=== PATIENT | female | born 1995 | race Caucasian/White ===

== ENCOUNTER → 2019-10-28 14:13 | Outpatient (CLI) | payer OTHER, SELFPAY ==
[2019-10-31 18:45] LABS: Candida species Negative (Negative)
[2019-11-05 11:04] LABS: Trichomoas vaginalis Negative (Negative)
== END ==
PROVIDERS: PCP Radiology Diagnostic Radiology; Visit Provider Obstetrics & Gynecology
DX: N76.0 Acute vaginitis (principal)
CPT/HCPCS: 87480; 87491; 87510; 87591; 87798; 87801

== ENCOUNTER 2020-05-13 09:45 | Outpatient (RCR) | payer OTHER, SELFPAY ==
--- NOTE | 2020-02-19 18:24 | PT.OIE ---
Current Diagnoses Pelvic and perineal pain (02/24/20) Past Medical History (Last Reviewed 10/28/19 @ 14:42 by Bernie Hinkle MD) Chronic pelvic pain in female (Chronic) Past Surgical History (Last Reviewed 10/28/19 @ 14:42 by Bernie Hinkle MD) History of appendectomy (Resolved) History of tonsillectomy and adenoidectomy (Resolved) Visit Care Team Role Provider Type Zackery Brito Attending Provider Non-Staff Primary Care Provider Referring Provider Specialty: Medical Address: [place], [place], [facility] Fax: Email: Physical Therapy Initial Evaluation PT-OP-A Visit Information Start: 02/19/20 12:56 Freq: Status: Active Protocol: Document 02/19/20 12:56 [facility] (Rec: 02/19/20 12:56 [facility] [email or web address]) Out-Patient Physical Therapy Visit Information Visit Information Visit Type Initial Evaluation Visit Start Time 14:30 Visit Stop Time 15:15 Total Visit Minutes 45 Visit Number 1 Evaluation Information Evaluation Date 02/19/20 PT-OP-B Current Condition Start: 02/19/20 12:56 Freq: Status: Active Protocol: Document 02/19/20 14:41 [facility] (Rec: 02/19/20 14:53 [facility] [id number]) Current Condition History of Current Condition Onset Date 2 years History of Current Condition Any time she does major exercise she gets a pulsing feeling and pain, she describes it as bad cramps. Some times she will wake up and it is there. At the time pain started she had develop cysts in her uterus. She had a laporoscopy but they were not able to get to the uterus to see if she has endometriosis. She had Appendix surgery 2013. Currently she is taking IBU when needed and testing different control pills. She has a history of low back pain that she got when she joined the . Back always hurts. Pt is in the [place]. Feels pressure in the pelvis with standing after 15 minutes, sitting will also bring on pressure after about 15 minutes. Treatment Goals Patient/Caregiver Goals Pts goals are to decrease pain in the pelvic floor and anterior pelvis and to be able to continue to exercise without pain PT-OP-F Manual Assessment Start: 02/19/20 12:56 Freq: Status: Active Protocol: Document 02/19/20 18:47 [facility] (Rec: 02/24/20 17:42 [facility] [email or web address]) Manual Assessments Soft Tissue Assessment Soft Tissue Mobility Assessment tightness across the myofascial tissue in the abdominal region in the suprapubic region and right side of the abdominal wall, tightness of the right greater than left iliopsoas, adductor muscle guarding and tightness bilaterally PT-OP-I Pelvic Floor Start: 02/19/20 12:56 Freq: Status: Active Protocol: Document 02/19/20 18:47 [facility] (Rec: 02/24/20 17:42 [facility] [email or web address]) Pelvic Floor Assessment Urine Pelvic Floor Surgery No Urinary Symptoms Falling Out Feeling/Heavy Voiding Frequency 3 times per day Nocturia 0 Pelvic Clock Pelvic Clock 12-3 Guarding Pelvic Clock 3-6 Hypertonic Pelvic Clock 6-9 Hypertonic Pelvic Clock 9-12 Guarding Pelvic Clock Other tenderness to palpation with all sides of the levator ani SEMG (uV) Baseline 4.0 Recruitment Pattern Fair Relaxation Fair Holding Poor/Slow Stability of Hold Poor/Slow SEMG Stability of Rest Fair Contraction Ability Voluntary Contraction Moderate Voluntary Relaxation Absent Manual Muscle Testing Left 4 Manual Muscle Testing Right 4 Manual Muscle Testing Anterior 4 Manual Muscle Testing Posterior 4 PT-OP-T Assessment and Plan Start: 02/19/20 12:56 Freq: Status: Active Protocol: Document 02/19/20 18:47 [facility] (Rec: 02/24/20 17:42 [facility] [email or web address]) Physical Therapy Assessment Rehab Potential Rehabilitation Potential Excellent Evaluation Complexity Number of Personal Factors/Comorbidities 1-2 Number of Body Systems Impaired 1-2 Clinical Presentation at Evaluation Stable Impairments Impairments Activity Tolerance,Functional Activities,Pain,Soft Tissue Mobility,Tone Goals Four Impairment pt lacks a home program for pelvic pain management [employer] Goal (LTG) pt has been instructed in breathing techniques and specific yoga positions to address her pelvic pain symptoms LTG Duration 8 weeks Three Impairment Tightness in the iliopsoas R > L and B adductors Short Term Goal (STG) Nataly is shown a stretching program to improve length of the iliopsoas and adductors STG Duration 5 weeks Two Impairment myofascial tightness across the abdominal and suprapubic fascia Long-Term Goal (LTG) With manual therapy techniques there is a reduction in myofascial tightness across the abdominal wall and suprapubic fascia. LTG Duration 8 weeks One Impairment complaints of pelvic pain that worsens with exercise, standing and sitting Short Term Goal (STG) Nataly is educated on relaxed awareness of her pelvic floor and abdominal wall at rest STG Duration 4 weeks Long-Term Goal (LTG) Nataly reports a overall reduction in pain from current scale of 5/10 to 1-2/10 after exercise and with standing and sitting activities LTG Duration 8 weeks Assessment Summary Assessment Nataly presents to physical therapy today with signs and symptoms of levator ani hypertonicity and pelvic pain symptoms. She has had pain for the past 2 years and it has progressed. She feels that her pain is aggravated with exercise. She reports a pulsing feeling and increase pelvic pressure with exercise . She also notes that after 15 minutes of sitting or standing pelvic pressure increases. Nataly reports she has had a laproscopy to remove cysts. She also has a history of appendictomy. With examination today Vianca presents with myofascial restrictions throughout the abdominal fascia, she is tight and guarded in the adductors and quadriceps. With pelvic floor examination Nataly presents with tightness and increased tone throughout the levator ani. She has difficulty relaxing after a contraction. Endurance of a pelvic floor contraction is limited. Nataly is a good candidate for PT to address her pelvic pain. Treatment will include MFR over the abdominal wall and suprapubic fascia, iliopsoas and adductor release, and manual therapy techniques for the levator ani . Breathing techniques will be used to help reduce tone of the pelvic floor as well as relaxed awareness of the pelvic floor on EMG biofeedback. Physical Therapy Plan Frequency and Duration Frequency of Treatment 1x/Week Duration of Treatment 8 Plan of Care Start Date 02/19/20 Plan of Care End Date 04/22/20 Therapeutic Interventions Therapeutic Interventions Home Exercise Program,Manual Therapy,Neuromuscular Re- education,Patient/Caregiver Education,Self-Care/Home Management,Soft Tissue Mobilization,Therapeutic Exercises Modalities Biofeedback Next Visit Focus/Plan Next Note Type Treatment Note Next Visit Plan MFR over the abdominal wall, visceral release to the bladder, MFR to the adductors and iliopsoas musculature
--- NOTE | 2020-02-19 18:28 | PT.OPPOC ---
Physical, Occupational & Speech Therapy At [facility] Current Diagnoses Pelvic and perineal pain (02/24/20) Visit Care Team Role Provider Type Zackery Brito Attending Provider Non-Staff Primary Care Provider Referring Provider Specialty: Medical Address: [place], [address] Fax: Email: Plan Of Care PT-OP-T Assessment and Plan Start: 02/19/20 12:56 Freq: Status: Active Protocol: Document 02/19/20 18:47 [facility] (Rec: 02/24/20 17:42 [facility] [email or web address]) Physical Therapy Assessment Rehab Potential Rehabilitation Potential Excellent Evaluation Complexity Number of Personal Factors/Comorbidities 1-2 Number of Body Systems Impaired 1-2 Clinical Presentation at Evaluation Stable Impairments Impairments Activity Tolerance,Functional Activities,Pain,Soft Tissue Mobility,Tone Goals Four Impairment pt lacks a home program for pelvic pain management Care Home Goal (LTG) pt has been instructed in breathing techniques and specific yoga positions to address her pelvic pain symptoms LTG Duration 8 weeks Three Impairment Tightness in the iliopsoas R > L and B adductors Short Term Goal (STG) Nataly is shown a stretching program to improve length of the iliopsoas and adductors STG Duration 5 weeks Two Impairment myofascial tightness across the abdominal and suprapubic fascia Care Home Goal (LTG) With manual therapy techniques there is a reduction in myofascial tightness across the abdominal wall and suprapubic fascia. LTG Duration 8 weeks One Impairment complaints of pelvic pain that worsens with exercise, standing and sitting Short Term Goal (STG) Nataly is educated on relaxed awareness of her pelvic floor and abdominal wall at rest STG Duration 4 weeks [employer] Goal (LTG) Nataly reports a overall reduction in pain from current scale of 5/10 to 1-2/10 after exercise and with standing and sitting activities LTG Duration 8 weeks Assessment Summary Assessment Nataly presents to physical therapy today with signs and symptoms of levator ani hypertonicity and pelvic pain symptoms. She has had pain for the past 2 years and it has progressed. She feels that her pain is aggravated with exercise. She reports a pulsing feeling and increase pelvic pressure with exercise . She also notes that after 15 minutes of sitting or standing pelvic pressure increases. Nataly reports she has had a laproscopy to remove cysts. She also has a history of appendictomy. With examination today Vianca presents with myofascial restrictions throughout the abdominal fascia, she is tight and guarded in the adductors and quadriceps. With pelvic floor examination Nataly presents with tightness and increased tone throughout the levator ani. She has difficulty relaxing after a contraction. Endurance of a pelvic floor contraction is limited. Nataly is a good candidate for PT to address her pelvic pain. Treatment will include MFR over the abdominal wall and suprapubic fascia, iliopsoas and adductor release, and manual therapy techniques for the levator ani . Breathing techniques will be used to help reduce tone of the pelvic floor as well as relaxed awareness of the pelvic floor on EMG biofeedback. Physical Therapy Plan Frequency and Duration Frequency of Treatment 1x/Week Duration of Treatment 8 Plan of Care Start Date 02/19/20 Plan of Care End Date 04/22/20 Therapeutic Interventions Therapeutic Interventions Home Exercise Program,Manual Therapy,Neuromuscular Re- education,Patient/Caregiver Education,Self-Care/Home Management,Soft Tissue Mobilization,Therapeutic Exercises Modalities Biofeedback Next Visit Focus/Plan Next Note Type Treatment Note Next Visit Plan MFR over the abdominal wall, visceral release to the bladder, MFR to the adductors and iliopsoas musculature Plan of Care Dates Plan of Care Start Date 02/19/20 Plan of Care End Date 04/22/20 Electronically Signed by: Laurence Carranza, PT 02/24/20 [id number] Please Sign and Return: I have reviewed this Plan of Care and certify that the skilled therapy services above are required to meet the patient?s needs. Physician Signature Date Printed Name and Credentials Clinical Instructor Signature Printed Name and Credentials
--- NOTE | 2020-02-24 18:25 | PT.OPPOC ---
Physical, Occupational & Speech Therapy [facility] Current Diagnoses Pelvic and perineal pain (02/24/20) Visit Care Team Role Provider Type Zackery Brito Attending Provider Non-Staff Primary Care Provider Referring Provider Specialty: Medical Address: [place], [address] Fax: Email: Plan Of Care PT-OP-T Assessment and Plan Start: 02/19/20 12:56 Freq: Status: Active Protocol: Document 02/19/20 18:47 [facility] (Rec: 02/24/20 17:42 [facility] [email or web address]) Physical Therapy Assessment Rehab Potential Rehabilitation Potential Excellent Evaluation Complexity Number of Personal Factors/Comorbidities 1-2 Number of Body Systems Impaired 1-2 Clinical Presentation at Evaluation Stable Impairments Impairments Activity Tolerance,Functional Activities,Pain,Soft Tissue Mobility,Tone Goals Four Impairment pt lacks a home program for pelvic pain management Mcfp Goal (LTG) pt has been instructed in breathing techniques and specific yoga positions to address her pelvic pain symptoms LTG Duration 8 weeks Three Impairment Tightness in the iliopsoas R > L and B adductors Short Term Goal (STG) Nataly is shown a stretching program to improve length of the iliopsoas and adductors STG Duration 5 weeks Two Impairment myofascial tightness across the abdominal and suprapubic fascia Mcfp Goal (LTG) With manual therapy techniques there is a reduction in myofascial tightness across the abdominal wall and suprapubic fascia. LTG Duration 8 weeks One Impairment complaints of pelvic pain that worsens with exercise, standing and sitting Short Term Goal (STG) Nataly is educated on relaxed awareness of her pelvic floor and abdominal wall at rest STG Duration 4 weeks Associate Programmer Goal (LTG) Nataly reports a overall reduction in pain from current scale of 5/10 to 1-2/10 after exercise and with standing and sitting activities LTG Duration 8 weeks Assessment Summary Assessment Nataly presents to physical therapy today with signs and symptoms of levator ani hypertonicity and pelvic pain symptoms. She has had pain for the past 2 years and it has progressed. She feels that her pain is aggravated with exercise. She reports a pulsing feeling and increase pelvic pressure with exercise . She also notes that after 15 minutes of sitting or standing pelvic pressure increases. Nataly reports she has had a laproscopy to remove cysts. She also has a history of appendictomy. With examination today Vianca presents with myofascial restrictions throughout the abdominal fascia, she is tight and guarded in the adductors and quadriceps. With pelvic floor examination Nataly presents with tightness and increased tone throughout the levator ani. She has difficulty relaxing after a contraction. Endurance of a pelvic floor contraction is limited. Nataly is a good candidate for PT to address her pelvic pain. Treatment will include MFR over the abdominal wall and suprapubic fascia, iliopsoas and adductor release, and manual therapy techniques for the levator ani . Breathing techniques will be used to help reduce tone of the pelvic floor as well as relaxed awareness of the pelvic floor on EMG biofeedback. Physical Therapy Plan Frequency and Duration Frequency of Treatment 1x/Week Duration of Treatment 8 Plan of Care Start Date 02/19/20 Plan of Care End Date 04/22/20 Therapeutic Interventions Therapeutic Interventions Home Exercise Program,Manual Therapy,Neuromuscular Re- education,Patient/Caregiver Education,Self-Care/Home Management,Soft Tissue Mobilization,Therapeutic Exercises Modalities Biofeedback Next Visit Focus/Plan Next Note Type Treatment Note Next Visit Plan MFR over the abdominal wall, visceral release to the bladder, MFR to the adductors and iliopsoas musculature Plan of Care Dates Plan of Care Start Date 02/19/20 Plan of Care End Date 04/22/20 Electronically Signed by: Laurence Carranza, PT 02/24/20 [id number] Please Sign and Return: I have reviewed this Plan of Care and certify that the skilled therapy services above are required to meet the patient?s needs. Physician Signature Date Printed Name and Credentials Clinical Instructor Signature Printed Name and Credentials
--- NOTE | 2020-02-24 18:42 | PT.OTN ---
Current Diagnoses Pelvic and perineal pain (02/24/20) Physical Therapy Treatment Note PT-OP-A Visit Information Start: 02/19/20 12:56 Freq: Status: Active Protocol: Document 02/24/20 18:30 [facility] (Rec: 02/24/20 18:42 [facility] [email or web address]) Out-Patient Physical Therapy Visit Information Visit Information Visit Type Treatment Note Visit Start Time 09:45 Visit Stop Time 10:30 Total Visit Minutes 45 Visit Number 2 Evaluation Information Evaluation Date 02/19/20 PT-OP-B Current Condition Start: 02/19/20 12:56 Freq: Status: Active Protocol: Document 02/19/20 14:41 [facility] (Rec: 02/19/20 14:53 [facility] [id number]) Current Condition History of Current Condition Onset Date 2 years History of Current Condition Any time she does major exercise she gets a pulsing feeling and pain, she describes it as bad cramps. Some times she will wake up and it is there. At the time pain started she had develop cysts in her uterus. She had a laporoscopy but they were not able to get to the uterus to see if she has endometriosis. She had Appendix surgery 2013. Currently she is taking IBU when needed and testing different control pills. She has a history of low back pain that she got when she joined the . Back always hurts. Pt is in the [place]. Feels pressure in the pelvis with standing after 15 minutes, sitting will also bring on pressure after about 15 minutes. Treatment Goals Patient/Caregiver Goals Pts goals are to decrease pain in the pelvic floor and anterior pelvis and to be able to continue to exercise without pain PT-OP-C Subjective Start: 02/19/20 12:56 Freq: Status: Active Protocol: Document 02/24/20 18:30 [facility] (Rec: 02/24/20 18:42 [facility] [email or web address]) OP-PT Subjective Patient Comments Patient Comments pt reports she is really sore today. PT-OP-F Manual Assessment Start: 02/19/20 12:56 Freq: Status: Active Protocol: Document 02/19/20 18:47 [facility] (Rec: 02/24/20 17:42 [facility] [email or web address]) Manual Assessments Soft Tissue Assessment Soft Tissue Mobility Assessment tightness across the myofascial tissue in the abdominal region in the suprapubic region and right side of the abdominal wall, tightness of the right greater than left iliopsoas, adductor muscle guarding and tightness bilaterally PT-OP-I Pelvic Floor Start: 02/19/20 12:56 Freq: Status: Active Protocol: Document 02/19/20 18:47 [facility] (Rec: 02/24/20 17:42 [facility] [email or web address]) Pelvic Floor Assessment Urine Pelvic Floor Surgery No Urinary Symptoms Falling Out Feeling/Heavy Voiding Frequency 3 times per day Nocturia 0 Pelvic Clock Pelvic Clock 12-3 Guarding Pelvic Clock 3-6 Hypertonic Pelvic Clock 6-9 Hypertonic Pelvic Clock 9-12 Guarding Pelvic Clock Other tenderness to palpation with all sides of the levator ani SEMG (uV) Baseline 4.0 Recruitment Pattern Fair Relaxation Fair Holding Poor/Slow Stability of Hold Poor/Slow SEMG Stability of Rest Fair Contraction Ability Voluntary Contraction Moderate Voluntary Relaxation Absent Manual Muscle Testing Left 4 Manual Muscle Testing Right 4 Manual Muscle Testing Anterior 4 Manual Muscle Testing Posterior 4 PT-OP-Q Treatments Start: 02/19/20 12:56 Freq: Status: Active Protocol: Document 02/24/20 18:30 [facility] (Rec: 02/24/20 18:42 [facility] [email or web address]) Manual Therapy Treatment Soft Tissue Mobilization 2 Body Location manual adductor release 1 Body Location MFR over the abdominal wall and suprapubic fascia Manual Techniques manual iliopsoas stretch R Type manual iliopsoas stretch on the right side Comments in david test position Neuro Re-Education Treatment Other Activities 1 Details EMG BIOFEEDBACK for down training of the pelvic floor muscles Comments pt educated on relaxed awareness of her pelvic floor, breathing techniques were taught to help with pelvic floor relaxation PT-OP-T Assessment and Plan Start: 02/19/20 12:56 Freq: Status: Active Protocol: Document 02/24/20 18:30 [facility] (Rec: 02/24/20 18:42 [facility] [email or web address]) Physical Therapy Assessment Assessment Summary Assessment Treatment today included MFR over the abdominal wall and suprapubic fascia, adductor release and iliopsoas stretch. I began neuro re-education today for relaxed awareness of the pelvic floor with EMG biofeedback as well asd breathing techniques to help with relaxation. Pelvic floor contractions increase tension in the pelvic floor. Pt tolerated treatment well today Physical Therapy Plan Frequency and Duration Frequency of Treatment 1x/Week Duration of Treatment 8 Plan of Care Start Date 02/19/20 Plan of Care End Date 04/22/20 Therapeutic Interventions Therapeutic Interventions Home Exercise Program,Manual Therapy,Neuromuscular Re- education,Patient/Caregiver Education,Self-Care/Home Management,Soft Tissue Mobilization,Therapeutic Exercises Modalities Biofeedback
--- NOTE | 2020-03-02 18:29 | PT.OTN ---
Current Diagnoses Pelvic and perineal pain (03/02/20) Physical Therapy Treatment Note PT-OP-A Visit Information Start: 02/19/20 12:56 Freq: Status: Active Protocol: Document 03/02/20 18:24 [facility] (Rec: 03/02/20 18:29 [facility] [id number]) Out-Patient Physical Therapy Visit Information Visit Information Visit Type Treatment Note Visit Start Time 09:45 Visit Stop Time 10:30 Total Visit Minutes 45 Visit Number 3 PT-OP-B Current Condition Start: 02/19/20 12:56 Freq: Status: Active Protocol: Document 02/19/20 14:41 [facility] (Rec: 02/19/20 14:53 [facility] [id number]) Current Condition History of Current Condition Onset Date 2 years History of Current Condition Any time she does major exercise she gets a pulsing feeling and pain, she describes it as bad cramps. Some times she will wake up and it is there. At the time pain started she had develop cysts in her uterus. She had a laporoscopy but they were not able to get to the uterus to see if she has endometriosis. She had Appendix surgery 2013. Currently she is taking IBU when needed and testing different control pills. She has a history of low back pain that she got when she joined the . Back always hurts. Pt is in the [place]. Feels pressure in the pelvis with standing after 15 minutes, sitting will also bring on pressure after about 15 minutes. Treatment Goals Patient/Caregiver Goals Pts goals are to decrease pain in the pelvic floor and anterior pelvis and to be able to continue to exercise without pain PT-OP-C Subjective Start: 02/19/20 12:56 Freq: Status: Active Protocol: Document 03/02/20 18:24 [facility] (Rec: 03/02/20 18:29 [facility] [id number]) OP-PT Subjective Patient Comments Patient Comments pt reports she was sore after trying to do contract relax of thepelvci floor last visit PT-OP-F Manual Assessment Start: 02/19/20 12:56 Freq: Status: Active Protocol: Document 02/19/20 18:47 [facility] (Rec: 02/24/20 17:42 [facility] [email or web address]) Manual Assessments Soft Tissue Assessment Soft Tissue Mobility Assessment tightness across the myofascial tissue in the abdominal region in the suprapubic region and right side of the abdominal wall, tightness of the right greater than left iliopsoas, adductor muscle guarding and tightness bilaterally PT-OP-I Pelvic Floor Start: 02/19/20 12:56 Freq: Status: Active Protocol: Document 02/19/20 18:47 [facility] (Rec: 02/24/20 17:42 [facility] [id number]) Pelvic Floor Assessment Urine Pelvic Floor Surgery No Urinary Symptoms Falling Out Feeling/Heavy Voiding Frequency 3 times per day Nocturia 0 Pelvic Clock Pelvic Clock 12-3 Guarding Pelvic Clock 3-6 Hypertonic Pelvic Clock 6-9 Hypertonic Pelvic Clock 9-12 Guarding Pelvic Clock Other tenderness to palpation with all sides of the levator ani SEMG (uV) Baseline 4.0 Recruitment Pattern Fair Relaxation Fair Holding Poor/Slow Stability of Hold Poor/Slow SEMG Stability of Rest Fair Contraction Ability Voluntary Contraction Moderate Voluntary Relaxation Absent Manual Muscle Testing Left 4 Manual Muscle Testing Right 4 Manual Muscle Testing Anterior 4 Manual Muscle Testing Posterior 4 PT-OP-Q Treatments Start: 02/19/20 12:56 Freq: Status: Active Protocol: Document 03/02/20 18:24 [facility] (Rec: 03/02/20 18:29 [facility] [id number]) Therapeutic Exercises Other Exercises 2 Other Exercise Name quadruped TA contract and relax Comments with emphasis on relaxation of the abdominal wall 1 Other Exercise Name cat cow Reps/Minutes x 10 reps Comments with emphasis on relaxing the abdominal wall Manual Therapy Treatment Soft Tissue Mobilization 3 Body Location sidelying Obturator internusrelease B 2 Body Location manual adductor release 1 Body Location MFR over the abdominal wall and suprapubic fascia PT-OP-T Assessment and Plan Start: 02/19/20 12:56 Freq: Status: Active Protocol: Document 03/02/20 18:24 [facility] (Rec: 03/02/20 18:29 [facility] [id number]) Physical Therapy Assessment Assessment Summary Assessment Pt was very guarded in the obturator internus, trial of internal pelvic floor release next visit. Continue to work on stretches to relax adductors, iliopsoas, and abdominal wall Physical Therapy Plan Frequency and Duration Frequency of Treatment 1x/Week Duration of Treatment 8 Plan of Care Start Date 02/19/20 Plan of Care End Date 04/22/20 Next Visit Focus/Plan Next Note Type Treatment Note Next Visit Plan Continue to work on visceral release over the bladder, internal pelvic floor release next visit
--- NOTE | 2020-03-28 11:29 | PT.OTN ---
Current Diagnoses Pelvic and perineal pain (03/25/20) Physical Therapy Treatment Note PT-OP-A Visit Information Start: 02/19/20 12:56 Freq: Status: Active Protocol: Document 03/25/20 11:23 [facility] (Rec: 03/25/20 11:24 [facility] [email or web address]) Out-Patient Physical Therapy Visit Information Visit Information Visit Type Treatment Note Visit Start Time 10:30 Visit Stop Time 11:15 Total Visit Minutes 45 Visit Number 4 PT-OP-B Current Condition Start: 02/19/20 12:56 Freq: Status: Active Protocol: Document 02/19/20 14:41 [facility] (Rec: 02/19/20 14:53 [facility] [id number]) Current Condition History of Current Condition Onset Date 2 years History of Current Condition Any time she does major exercise she gets a pulsing feeling and pain, she describes it as bad cramps. Some times she will wake up and it is there. At the time pain started she had develop cysts in her uterus. She had a laporoscopy but they were not able to get to the uterus to see if she has endometriosis. She had Appendix surgery 2013. Currently she is taking IBU when needed and testing different control pills. She has a history of low back pain that she got when she joined the . Back always hurts. Pt is in the [place]. Feels pressure in the pelvis with standing after 15 minutes, sitting will also bring on pressure after about 15 minutes. Treatment Goals Patient/Caregiver Goals Pts goals are to decrease pain in the pelvic floor and anterior pelvis and to be able to continue to exercise without pain PT-OP-C Subjective Start: 02/19/20 12:56 Freq: Status: Active Protocol: Document 03/25/20 10:36 [facility] (Rec: 03/25/20 10:40 [facility] [id number]) OP-PT Subjective Patient Comments Patient Comments pt has been trying to run, she feels pain while she is running. PT-OP-F Manual Assessment Start: 02/19/20 12:56 Freq: Status: Active Protocol: Document 02/19/20 18:47 [facility] (Rec: 02/24/20 17:42 [facility] [email or web address]) Manual Assessments Soft Tissue Assessment Soft Tissue Mobility Assessment tightness across the myofascial tissue in the abdominal region in the suprapubic region and right side of the abdominal wall, tightness of the right greater than left iliopsoas, adductor muscle guarding and tightness bilaterally PT-OP-I Pelvic Floor Start: 02/19/20 12:56 Freq: Status: Active Protocol: Document 02/19/20 18:47 [facility] (Rec: 02/24/20 17:42 [facility] [email or web address]) Pelvic Floor Assessment Urine Pelvic Floor Surgery No Urinary Symptoms Falling Out Feeling/Heavy Voiding Frequency 3 times per day Nocturia 0 Pelvic Clock Pelvic Clock 12-3 Guarding Pelvic Clock 3-6 Hypertonic Pelvic Clock 6-9 Hypertonic Pelvic Clock 9-12 Guarding Pelvic Clock Other tenderness to palpation with all sides of the levator ani SEMG (uV) Baseline 4.0 Recruitment Pattern Fair Relaxation Fair Holding Poor/Slow Stability of Hold Poor/Slow SEMG Stability of Rest Fair Contraction Ability Voluntary Contraction Moderate Voluntary Relaxation Absent Manual Muscle Testing Left 4 Manual Muscle Testing Right 4 Manual Muscle Testing Anterior 4 Manual Muscle Testing Posterior 4 PT-OP-Q Treatments Start: 02/19/20 12:56 Freq: Status: Active Protocol: Document 03/25/20 10:30 [facility] (Rec: 03/28/20 11:27 [facility] [id number]) Therapeutic Exercises Supine Exercises adductor stretch Supine Exercise Name with manual stretch iliopsoas stretch Supine Exercise Name iliopsoas stretch Comments t in david test position with manual release at the time of stretch Manual Therapy Treatment Soft Tissue Mobilization 3 Body Location supine Obturator internusrelease B 2 Body Location manual adductor release 1 Body Location MFR over the abdominal wall and suprapubic fascia PT-OP-T Assessment and Plan Start: 02/19/20 12:56 Freq: Status: Active Protocol: Document 03/25/20 10:30 [facility] (Rec: 03/28/20 11:29 [facility] [id number]) Physical Therapy Assessment Assessment Summary Assessment I talked about staying on flat surfaces at this time for running, adductors and obturator internus very tight bilaterally and tenderness in the suprapubic region. Worked on breathing techniques as well as home stretching program Physical Therapy Plan Frequency and Duration Frequency of Treatment 1x/Week Duration of Treatment 8 Plan of Care Start Date 02/19/20 Plan of Care End Date 04/22/20 Next Visit Focus/Plan Next Note Type Treatment Note Next Visit Plan Continue to work on visceral release over the bladder, internal pelvic floor release next visit
--- NOTE | 2020-04-08 17:31 | PT.OTN ---
Current Diagnoses Pelvic and perineal pain (04/08/20) Physical Therapy Treatment Note PT-OP-A Visit Information Start: 02/19/20 12:56 Freq: Status: Active Protocol: Document 04/08/20 17:23 [facility] (Rec: 04/08/20 17:30 [facility] [id number]) Out-Patient Physical Therapy Visit Information Visit Information Visit Type Treatment Note Visit Start Time 16:00 Visit Stop Time 16:45 Total Visit Minutes 45 Visit Number 5 PT-OP-B Current Condition Start: 02/19/20 12:56 Freq: Status: Active Protocol: Document 02/19/20 14:41 [facility] (Rec: 02/19/20 14:53 [facility] [id number]) Current Condition History of Current Condition Onset Date 2 years History of Current Condition Any time she does major exercise she gets a pulsing feeling and pain, she describes it as bad cramps. Some times she will wake up and it is there. At the time pain started she had develop cysts in her uterus. She had a laporoscopy but they were not able to get to the uterus to see if she has endometriosis. She had Appendix surgery 2013. Currently she is taking IBU when needed and testing different control pills. She has a history of low back pain that she got when she joined the . Back always hurts. Pt is in the [place]. Feels pressure in the pelvis with standing after 15 minutes, sitting will also bring on pressure after about 15 minutes. Treatment Goals Patient/Caregiver Goals Pts goals are to decrease pain in the pelvic floor and anterior pelvis and to be able to continue to exercise without pain PT-OP-C Subjective Start: 02/19/20 12:56 Freq: Status: Active Protocol: Document 04/08/20 17:23 [facility] (Rec: 04/08/20 17:30 [facility] [id number]) OP-PT Subjective Patient Comments Patient Comments pt notes she was on her cycle last week and it was a really hard week with pain PT-OP-F Manual Assessment Start: 02/19/20 12:56 Freq: Status: Active Protocol: Document 02/19/20 18:47 [facility] (Rec: 02/24/20 17:42 [facility] [email or web address]) Manual Assessments Soft Tissue Assessment Soft Tissue Mobility Assessment tightness across the myofascial tissue in the abdominal region in the suprapubic region and right side of the abdominal wall, tightness of the right greater than left iliopsoas, adductor muscle guarding and tightness bilaterally PT-OP-I Pelvic Floor Start: 02/19/20 12:56 Freq: Status: Active Protocol: Document 02/19/20 18:47 [facility] (Rec: 02/24/20 17:42 [facility] [email or web address]) Pelvic Floor Assessment Urine Pelvic Floor Surgery No Urinary Symptoms Falling Out Feeling/Heavy Voiding Frequency 3 times per day Nocturia 0 Pelvic Clock Pelvic Clock 12-3 Guarding Pelvic Clock 3-6 Hypertonic Pelvic Clock 6-9 Hypertonic Pelvic Clock 9-12 Guarding Pelvic Clock Other tenderness to palpation with all sides of the levator ani SEMG (uV) Baseline 4.0 Recruitment Pattern Fair Relaxation Fair Holding Poor/Slow Stability of Hold Poor/Slow SEMG Stability of Rest Fair Contraction Ability Voluntary Contraction Moderate Voluntary Relaxation Absent Manual Muscle Testing Left 4 Manual Muscle Testing Right 4 Manual Muscle Testing Anterior 4 Manual Muscle Testing Posterior 4 PT-OP-Q Treatments Start: 02/19/20 12:56 Freq: Status: Active Protocol: Document 04/08/20 17:23 [facility] (Rec: 04/08/20 17:30 [facility] [id number]) Therapeutic Exercises Supine Exercises pelvic floor drop Supine Exercise Name pelvic floor drop on EMG biofeedback Comments contarx relax for double the amount of time diaphragmatic breathing Supine Exercise Name diaphragmatic breathing Reps/Minutes 10 reps 4 second inhale 6 second exhale Other Exercises 2 Other Exercise Name quadruped TA contract and relax Comments with emphasis on relaxation of the abdominal wall 1 Other Exercise Name cat cow Reps/Minutes x 10 reps Comments with emphasis on relaxing the abdominal wall Manual Therapy Treatment Soft Tissue Mobilization levator ani release Body Location levator ani Comments MFR techniques to relax the pubococcygeus, iliococcygeus, coccygeus musculature 3 Body Location supine Obturator internusrelease B 2 Body Location manual adductor release 1 Body Location MFR over the abdominal wall and suprapubic fascia Manual Techniques manual iliopsoas stretch R Type manual iliopsoas stretch on the right side Comments in david test position PT-OP-T Assessment and Plan Start: 02/19/20 12:56 Freq: Status: Active Protocol: Document 04/08/20 17:23 [facility] (Rec: 04/08/20 17:30 [facility] [id number]) Physical Therapy Assessment Assessment Summary Assessment diaphragmatic breathing really helped with the resting tone dropping it for a few seconds to baseline. Nataly was given breathing techniques for home Physical Therapy Plan Frequency and Duration Frequency of Treatment 1x/Week Duration of Treatment 8 Plan of Care Start Date 02/19/20 Plan of Care End Date 04/22/20 Therapeutic Interventions Therapeutic Interventions Home Exercise Program,Manual Therapy,Neuromuscular Re- education,Patient/Caregiver Education,Self-Care/Home Management,Soft Tissue Mobilization,Therapeutic Exercises Modalities Biofeedback Next Visit Focus/Plan Next Note Type Treatment Note Next Visit Plan Continue to work on visceral release over the bladder, internal pelvic floor release next visit
--- NOTE | 2020-04-14 17:53 | PT.OTN ---
Current Diagnoses Pelvic and perineal pain (04/13/20) Physical Therapy Treatment Note PT-OP-A Visit Information Start: 02/19/20 12:56 Freq: Status: Active Protocol: Document 04/13/20 16:00 [facility] (Rec: 04/15/20 17:53 [facility] [id number]) Out-Patient Physical Therapy Visit Information Visit Information Visit Type Treatment Note Visit Start Time 16:00 Visit Stop Time 16:45 Total Visit Minutes 45 Visit Number 6 PT-OP-B Current Condition Start: 02/19/20 12:56 Freq: Status: Active Protocol: Document 02/19/20 14:41 [facility] (Rec: 02/19/20 14:53 [facility] [id number]) Current Condition History of Current Condition Onset Date 2 years History of Current Condition Any time she does major exercise she gets a pulsing feeling and pain, she describes it as bad cramps. Some times she will wake up and it is there. At the time pain started she had develop cysts in her uterus. She had a laporoscopy but they were not able to get to the uterus to see if she has endometriosis. She had Appendix surgery 2013. Currently she is taking IBU when needed and testing different control pills. She has a history of low back pain that she got when she joined the . Back always hurts. Pt is in the [place]. Feels pressure in the pelvis with standing after 15 minutes, sitting will also bring on pressure after about 15 minutes. Treatment Goals Patient/Caregiver Goals Pts goals are to decrease pain in the pelvic floor and anterior pelvis and to be able to continue to exercise without pain PT-OP-C Subjective Start: 02/19/20 12:56 Freq: Status: Active Protocol: Document 04/13/20 16:00 [facility] (Rec: 04/15/20 17:53 [facility] [id number]) OP-PT Subjective Patient Comments Patient Comments pt reports she is still having pain, she is working on her stretches for home PT-OP-F Manual Assessment Start: 02/19/20 12:56 Freq: Status: Active Protocol: Document 02/19/20 18:47 [facility] (Rec: 02/24/20 17:42 [facility] [email or web address]) Manual Assessments Soft Tissue Assessment Soft Tissue Mobility Assessment tightness across the myofascial tissue in the abdominal region in the suprapubic region and right side of the abdominal wall, tightness of the right greater than left iliopsoas, adductor muscle guarding and tightness bilaterally PT-OP-I Pelvic Floor Start: 02/19/20 12:56 Freq: Status: Active Protocol: Document 02/19/20 18:47 [facility] (Rec: 02/24/20 17:42 [facility] [id number]) Pelvic Floor Assessment Urine Pelvic Floor Surgery No Urinary Symptoms Falling Out Feeling/Heavy Voiding Frequency 3 times per day Nocturia 0 Pelvic Clock Pelvic Clock 12-3 Guarding Pelvic Clock 3-6 Hypertonic Pelvic Clock 6-9 Hypertonic Pelvic Clock 9-12 Guarding Pelvic Clock Other tenderness to palpation with all sides of the levator ani SEMG (uV) Baseline 4.0 Recruitment Pattern Fair Relaxation Fair Holding Poor/Slow Stability of Hold Poor/Slow SEMG Stability of Rest Fair Contraction Ability Voluntary Contraction Moderate Voluntary Relaxation Absent Manual Muscle Testing Left 4 Manual Muscle Testing Right 4 Manual Muscle Testing Anterior 4 Manual Muscle Testing Posterior 4 PT-OP-Q Treatments Start: 02/19/20 12:56 Freq: Status: Active Protocol: Document 04/13/20 16:00 [facility] (Rec: 04/15/20 17:53 [facility] [id number]) Manual Therapy Treatment Soft Tissue Mobilization levator ani release Body Location levator ani Comments MFR techniques to relax the pubococcygeus, iliococcygeus, coccygeus musculature 3 Body Location supine Obturator internusrelease B 2 Body Location manual adductor release 1 Body Location MFR over the abdominal wall and suprapubic fascia Manual Techniques manual iliopsoas stretch R Type manual iliopsoas stretch on the right side Comments in david test position PT-OP-T Assessment and Plan Start: 02/19/20 12:56 Freq: Status: Active Protocol: Document 04/13/20 16:00 [facility] (Rec: 04/15/20 17:53 [facility] [id number]) Physical Therapy Assessment Assessment Summary Assessment pt still experiencing pain, workind on releasing the levator ani today and educated pt on pelvic floor relaxation . She may benefit from a hormone test to check estrogen levels. Physical Therapy Plan Frequency and Duration Frequency of Treatment 1x/Week Duration of Treatment 8 Plan of Care Start Date 02/19/20 Plan of Care End Date 04/22/20 Next Visit Focus/Plan Next Note Type Treatment Note Next Visit Plan Continue to work on visceral release over the bladder, internal pelvic floor release next visit
--- NOTE | 2020-05-13 13:37 | PT.OTN ---
Current Diagnoses Pelvic and perineal pain (05/13/20) Physical Therapy Treatment Note PT-OP-A Visit Information Start: 02/19/20 12:56 Freq: Status: Active Protocol: Document 05/13/20 09:50 [facility] (Rec: 05/13/20 10:13 [facility] [id number]) Out-Patient Physical Therapy Visit Information Visit Information Visit Type Treatment Note Visit Start Time 09:45 Visit Stop Time 10:30 Total Visit Minutes 45 Visit Number 7 PT-OP-B Current Condition Start: 02/19/20 12:56 Freq: Status: Active Protocol: Document 02/19/20 14:41 [facility] (Rec: 02/19/20 14:53 [facility] [id number]) Current Condition History of Current Condition Onset Date 2 years History of Current Condition Any time she does major exercise she gets a pulsing feeling and pain, she describes it as bad cramps. Some times she will wake up and it is there. At the time pain started she had develop cysts in her uterus. She had a laporoscopy but they were not able to get to the uterus to see if she has endometriosis. She had Appendix surgery 2013. Currently she is taking IBU when needed and testing different control pills. She has a history of low back pain that she got when she joined the . Back always hurts. Pt is in the [place]. Feels pressure in the pelvis with standing after 15 minutes, sitting will also bring on pressure after about 15 minutes. Treatment Goals Patient/Caregiver Goals Pts goals are to decrease pain in the pelvic floor and anterior pelvis and to be able to continue to exercise without pain PT-OP-C Subjective Start: 02/19/20 12:56 Freq: Status: Active Protocol: Document 05/13/20 09:49 [facility] (Rec: 05/13/20 09:50 [facility] [id number]) OP-PT Subjective Patient Comments Patient Comments pt reports she is working on doing all of her stretches. Doing the breathing and she has noticed that after running it hasn't been as bad. Patient Reported Progress Improving PT-OP-F Manual Assessment Start: 02/19/20 12:56 Freq: Status: Active Protocol: Document 02/19/20 18:47 [facility] (Rec: 02/24/20 17:42 [facility] [email or web address]) Manual Assessments Soft Tissue Assessment Soft Tissue Mobility Assessment tightness across the myofascial tissue in the abdominal region in the suprapubic region and right side of the abdominal wall, tightness of the right greater than left iliopsoas, adductor muscle guarding and tightness bilaterally PT-OP-I Pelvic Floor Start: 02/19/20 12:56 Freq: Status: Active Protocol: Document 02/19/20 18:47 [facility] (Rec: 02/24/20 17:42 [facility] [email or web address]) Pelvic Floor Assessment Urine Pelvic Floor Surgery No Urinary Symptoms Falling Out Feeling/Heavy Voiding Frequency 3 times per day Nocturia 0 Pelvic Clock Pelvic Clock 12-3 Guarding Pelvic Clock 3-6 Hypertonic Pelvic Clock 6-9 Hypertonic Pelvic Clock 9-12 Guarding Pelvic Clock Other tenderness to palpation with all sides of the levator ani SEMG (uV) Baseline 4.0 Recruitment Pattern Fair Relaxation Fair Holding Poor/Slow Stability of Hold Poor/Slow SEMG Stability of Rest Fair Contraction Ability Voluntary Contraction Moderate Voluntary Relaxation Absent Manual Muscle Testing Left 4 Manual Muscle Testing Right 4 Manual Muscle Testing Anterior 4 Manual Muscle Testing Posterior 4 PT-OP-Q Treatments Start: 02/19/20 12:56 Freq: Status: Active Protocol: Document 05/13/20 09:50 [facility] (Rec: 05/13/20 10:13 [facility] [id number]) Therapeutic Exercises Supine Exercises frog stretch Supine Exercise Name frog stretch hamstring stretch Supine Exercise Name hamstring stretch happy baby Supine Exercise Name happy baby stretch adductor stretch Supine Exercise Name supine with towel Reps/Minutes hold 1 minute Other Exercises jignesh pose Other Exercise Name jignesh pose Comments side to side as well as center 2 Other Exercise Name quadruped TA contract and relax Comments with emphasis on relaxation of the abdominal wall 1 Other Exercise Name cat cow Reps/Minutes x 10 reps Comments with emphasis on relaxing the abdominal wall Manual Therapy Treatment Soft Tissue Mobilization 1 Body Location MFR over the abdominal wall and suprapubic fascia Manual Techniques manual iliopsoas stretch R Type manual iliopsoas stretch on the right side Comments in david test position PT-OP-T Assessment and Plan Start: 02/19/20 12:56 Freq: Status: Active Protocol: Document 05/13/20 13:32 [facility] (Rec: 05/13/20 13:36 [facility] [id number]) Physical Therapy Assessment Assessment Summary Assessment Nataly has been working on doing her stretches more and breathing exercises which is helping her some. SHe is still experiencing pain but seems to have a little better management of her symptoms at this point. She has no further visits left at this time. She was not sure she was ready to schedule any more . I left it open for her. Her authorization is good through June 26. If I do not hear back from her in the next few weeks she will be DC to a independent [facility] Physical Therapy Plan Frequency and Duration Frequency of Treatment 1x/Week Duration of Treatment 8 Plan of Care Start Date 02/19/20 Plan of Care End Date 04/22/20
== END 2020-12-06 11:03 ==
LOC: PHYS 09:45
PROVIDERS: PCP Radiology Diagnostic Radiology; Referring Provider Radiology Diagnostic Radiology; Visit Provider Radiology Diagnostic Radiology
DX: R10.2 Pelvic and perineal pain (principal)
CPT/HCPCS: 97110; 97112; 97140; 97161